=== PATIENT | female | born 1970 | race Caucasian/White ===

== ENCOUNTER 2018-02-01 18:31 | Outpatient (REF) | payer OTHER, SELFPAY ==
[2018-02-01 19:13] LABS: C-Reactive Protein 1.01 mg/dL (0.0-0.3)
[2018-02-01 20:48] LABS: ESR 8 MM/HR (0-20)
[2018-02-04 11:00] LABS: Rheumatoid Factor 9 IU/mL (<12.5)
[2018-02-04 11:34] LABS: Cyclic Citrullinated Peptide <2.5 U/mL (<5.0)
[2018-02-04 13:40] LABS: ANA Interpretation Positive (NEGAT); ANA Titer Pattern 1:80 Speckled
== END 2018-02-01 18:51 ==
LOC: NCHCN 18:31
PROVIDERS: PCP Nurse Practitioner Family; Visit Provider Physician Assistant Medical
DX: K13.0 Diseases of lips (principal); M35.3 Polymyalgia rheumatica
CPT/HCPCS: 85652; 86200; 86038; 86140; 86431

== ENCOUNTER 2018-04-11 18:21 | Outpatient (REF) | payer OTHER, SELFPAY | END 2018-04-11 18:41 | LOC: NCHCN 18:21 | PROVIDERS: PCP Nurse Practitioner Family; Visit Provider Nurse Practitioner Family | DX: N89.8 Other specified noninflammatory disorders of vagina (principal) | CPT/HCPCS: 87480; 87510; 87660 ==

== ENCOUNTER 2018-07-16 08:51 | Outpatient (REF) | payer OTHER, SELFPAY ==
[2018-07-16 22:18] LABS: TSH 1.17 uIU/mL (0.358-3.74)
== END 2018-07-16 09:11 ==
LOC: NCHCN 08:51
PROVIDERS: PCP Nurse Practitioner Family; Visit Provider Nurse Practitioner Family
DX: E03.9 Hypothyroidism, unspecified (principal)
CPT/HCPCS: 84443

== ENCOUNTER 2020-01-29 11:01 | Outpatient (REF) | payer BC, SELFPAY ==
[2020-01-29 19:07] LABS: Anion Gap 8.6 mmol/L (3-11); BUN 14 mg/dL (7-18); CO2 23.4 mmol/L (21.0-32.0); CREATININE 0.74 mg/dL (0.55-1.02); Calcium 9.4 mg/dL (8.5-10.1); Calculated LDL 178 mg/dL (<100); Chloride 99 mmol/L (98-107); Cholesterol 313 mg/dL (<200); Glucose 86 mg/dL (74-106); HDL Cholesterol 68 mg/dL (40-60); Potassium 4.5 mmol/L (3.5-5.1); Sodium 131 mmol/L (136-145); TSH 0.25 uIU/mL (0.36-3.74); Triglyceride 339 mg/dL (<150)
== END 2020-01-29 11:21 ==
LOC: NCHCN 11:01
PROVIDERS: PCP Nurse Practitioner Family; Visit Provider Nurse Practitioner Family
DX: E03.9 Hypothyroidism, unspecified (principal); K21.9 Gastro-esophageal reflux disease without esophagitis; Z00.00 Encounter for general adult medical examination without abnormal findings; Z13.220 Encounter for screening for lipoid disorders
CPT/HCPCS: 80048; 80061; 84443

== ENCOUNTER 2020-02-04 10:44 | Outpatient (REF) | payer BC, SELFPAY ==
--- NOTE | 2020-02-04 10:00 | PAPFT_PTH ---
PATIENT: Mingo Griffith LOC: [facility] U#:[id number] AGE/SX: 49/F ROOM: RE02/04/[address]: Judy Ovalles : 1970 BED: DIS: 02/04/2020 SPEC #: [id number] RECD: 02/04/20 12:58 STATUS: ABHAY REQ #: [id number] DONNY: 02/04/20 10:[address]: Judy Ovalles [facility] Cytology RECD BY: Fany Kelly ENTERED: 02/04/20 12:58 SP TYPE: PAPFT OTHR DR: Alejandra Ravi Tissues: 1 - CX/ENDOCX FOR PAP SMEARS Procedures: PAP THIN PREP/UVM Screening HPV DNA PROBE Comments: [id number]
== END 2020-02-04 11:04 ==
LOC: LBN 10:44
PROVIDERS: PCP Nurse Practitioner Family; Visit Provider Obstetrics & Gynecology Gynecology
DX: Z12.4 Encounter for screening for malignant neoplasm of cervix (principal); Z11.51 Encounter for screening for human papillomavirus (HPV)
CPT/HCPCS: 88142; 87624

== ENCOUNTER 2020-04-08 04:43 | Outpatient (CLI) | payer BC, SELFPAY ==
[2020-04-10 10:01] LABS: COVID-19 RT-PCR Result NEGATIVE (Negative)
== END 2020-04-08 05:03 ==
PROVIDERS: PCP Nurse Practitioner Family; Visit Provider Urology
DX: Z11.59 Encounter for screening for other viral diseases (principal)
CPT/HCPCS: U0003

== ENCOUNTER 2020-04-12 07:09 | Day surgery (SDC) | payer BC, SELFPAY ==
--- NOTE | 2020-04-12 06:59 | HPE_ITS ---
Assessment and Plan Assessment and plan (1) Urethral caruncle: Status: Acute Assessment and plan: For excision of urethral caruncle. I would expect that we will leave a laboy catheter in place temporarily as the incision heals. History of Present Illness History of Present Illness Chief Complaint: Urethral Caruncle Narrative: Mingo 49 year-old female referred to urology by Dr. Ovalles for concerns of a urethral caruncle. Patient notes that she has had it for 10+ years that she can remember. He causes her discomfort with voiding. She notes that she will also have blood on the toilet tissue when wiping. She also has dyspareunia. She notes that the dyspareunia is less than if they use plenty of lube and certain types of positions. She notes no trauma or injury that she can recall or frequent catheterizations. Review of Systems Narrative: No fevers or chills No vision change or dysphasia No diabetes. Hx hypothyroid disease No shortness of breath, cough or hemoptysis No chest pain or palpitations No hepatitis, ulcers, jaundice No seizures, strokes or peripheral neuropathy No bleeding disorders or anemia No gout. Hx fibromyalgia [facility] Medical History Anxiety Colitis Per patient's report not ulcerative and not Crohn's. Treats with diet. Deviated septum Dyspareunia Fibromyalgia History of migraine Hypothyroidism (acquired) Perimenopausal vasomotor symptoms 01/2020 stopped OCPs. 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 Urethral caruncle Surgical History H/O laparoscopy for endometriosis Family History Mother Diabetes Maternal Grandmother Thyroid disease Mother Breast cancer Maternal Grandfather Heart disease Social History Smoking/Tobacco Use Status: Never Smoking risk assessment performed?: Yes Alcohol Intake: current Alcohol Intake frequency: a few times a month Counseling given: No Drug use: Never Substance use type: does not use Household members: spouse and other Details: H-Arian RojasRondaMigdalia Housing: house Number of Children: 1 current occupation: Microcomputer Support Specialist Sexually active: Yes Do you feel safe at home: Yes Do you feel safe in your relationship?: Yes Female Reproductive History Menstrual control method: pills (Long-term use.) History History 1 Para 1 Hx # Term Pregnancies 1 Multiple births Hx # Pregnancies Ectopic pregnancies AB induced Hx Number of Living Children 1 AB spontaneous Meds Home Medications and Allergies Home Medications Medication Instructions Recorded Confirmed Type Flexeril 5 mg PO DAILY PRN 02/14/14 04/09/20 History cholecalciferol (vitamin D3) 5,000 unit PO DAILY 02/14/14 04/12/20 History levothyroxine [Levoxyl] 112 mcg PO DAILY tab-cap 02/14/14 04/12/20 History loratadine 10 mg PO DAILY tab-cap 02/14/14 04/12/20 History duloxetine 60 mg capsule,delayed 60 mg PO DAILY 03/11/20 04/12/20 History release conj estrogen-medroxyprogesterone 1 tab PO DAILY #84 tab 04/07/20 04/09/20 Rx 0.3 mg-1.5 mg tablet montelukast 10 mg PO DAILY 04/09/20 04/12/20 History Allergies Allergy/AdvReac Type Severity Reaction Status Date / Time enviromental Allergy seasonal Uncoded 04/09/20 11:14 Exam Const General: cooperative and comfortable Neck Neck: supple Resp Effort & Inspection: normal respiratory effort Auscultation: clear to auscultation bilaterally Cardio Rate: regular rate Rhythm: regular rhythm GI Palpation: soft and no masses Neuro General: patient alert, patient awake and patient oriented x3 COVID-19 Screening Have you, or household traveled for leisure in last 14 days?: No
[2020-04-12 07:31] VITALS: BP 118/82; PULSE 96; RESP 16; TEMP 36.6; O2SAT 97
[2020-04-12] MEDS: Lactated Ringers 1,000 ML 80 ML IV (08:08)
[2020-04-12] MEDS: ceFAZolin 1 GM/50 ML BAG IVPB (08:50)
[2020-04-12] MEDS: Lidocaine 2% Jelly 6 ML SYR (08:56)
[2020-04-12] MEDS: Lidocaine 1% Multi-Dose 50 ML VIAL (09:01)
--- NOTE | 2020-04-12 09:05 | URETHRABX_PTH ---
PATIENT: Mingo Griffith LOC: [facility] U#:[id number] AGE/SX: 49/F ROOM: RE04/12/[address]: Nabil Arechiga MD : 1970 BED: DIS: 04/12/2020 SPEC #: [id number] RECD: 04/12/20 12:31 STATUS: ABHAY REQ #: [id number] DONNY: 04/12/20 09:[address]: Nabil Arechiga DEPT: Surgical Specimen RECD BY: Fany Kelly ENTERED: 04/12/20 12:33 SP TYPE: URETHRABX OTHR DR: Alejandra Ravi Tissues: 1 - URETHRA BIOPSY Procedures: GROSS AND MICRO LEVEL 4 SPECIAL STAIN 1 Comments: [id number]
--- NOTE | 2020-04-12 09:22 | W.PM.DSUDISC ---
Discharge Plan Disposition Patient Disposition: HOME Condition: Stable Discharge Details Reason For Visit: urethral caruncle Attending Provider: Nabil Arechiga Primary Care Provider: Alejandra Ravi Home Meds and New Rx's Prescriptions: New estradiol [Estrace] 0.01 % (0.1 mg/gram) cream 1 g vaginal DAILY Qty: 42.5 RF: 0 No Action duloxetine [Cymbalta] 60 mg capsule,delayed release(DR/EC) 60 mg PO DAILY RF: 0 loratadine 10 MG tablet,disintegrating 10 mg PO DAILY RF: 0 levothyroxine [Levoxyl] 112 MCG tablet 112 mcg PO DAILY RF: 0 cholecalciferol (vitamin D3) 5,000 UNIT tablet 5,000 unit PO DAILY RF: 0 FLEXERIL 5 MG tablet 5 mg PO DAILY PRNRF: 0 Prempro 0.3-1.5 mg tablet 1 tab PO DAILY Qty: 84 RF: 4 montelukast 10 mg tablet 10 mg PO DAILY RF: 0 Discharge Instructions Additional Instructions: may D/C laboy prior to discharge New script for Estradiol vaginal cream - apply daily for 14 days (helps promote healing of vaginal tissue) Follow up 2 to 4 weeks for pelvic exam Activity:: Activity as Tolerated Shower/Bathe:: 24 hours Discharge Orders Discharge Orders: Discharge Order (Routine); Ordered 04/12/20 Ordered By: Nabil Arechiga Discharge Data Discharge Comment: pt must void prior to discharge DS: Diagnosis Discharge Diagnosis (1) Urethral caruncle: Status: Acute
--- NOTE | 2020-04-12 09:45 | ROE_ITS ---
Date of service: 04/12/20 Time of Service: 09:45 Operative Note Operative Note DATE OF PROCEDURE: 04/12/20 PRE-OP DIAGNOSIS: Urethral caruncle POST-OP DIAGNOSIS: same PROCEDURE: Excision of urethral caruncle SURGEON: Nabil Arechiga ANESTHESIA: other (General without intubation) ESTIMATED BLOOD LOSS: 25 PATHOLOGY: other (Urethral caruncle) COMPLICATIONS: None Patient was transported to: same day Indications: This is a 49-year-old woman who has a symptomatic urethral caruncle. She has discomfort when she voids as well as spotting of blood. She presents for excision of the caruncle Findings: Urethral caruncle Procedure Description: The patient was brought to the operating room on 04/12/2020. She was given a dose of preoperative IV antibiotics. After successful induction of general anesthesia without intubation, she was placed in the dorsal lithotomy position. Genitalia was prepped and draped. The labia were retracted laterally to expose the urethral meatus. A small carbuncle was seen on the underside of the urethral meatus. A 16 Arabic Domínguez was passed through the urethra into the bladder. The catheter balloon was inflated with 10 cc of sterile water and the catheter was hooked to gravity drainage. A field block using 1% lidocaine was performed around the caruncle. The carun mark was then excised and sent to pathology for permanent section. The edge of the urethral mucosa was reanastomosed to the cut edge of the vaginal mucosa using simple interrupted 4-0 chromic sutures. The patient tolerated this procedure well with no complications. The urethral catheter will be removed in the outpatient area once the patient is awake.
[2020-04-12 10:21] VITALS: BP 102/64; PULSE 77; RESP 16; TEMP 36.3; O2SAT 100
== END 2020-04-12 10:55 | disposition home or self-care (01) ==
PROVIDERS: PCP Nurse Practitioner Family; Visit Provider Urology
PROC: 0TJB8ZZ Inspection of Bladder, Via Natural or Artificial Opening Endoscopic (ICD-10-PCS; CPT 52000; principal; 2020-04-12 08:15)
DX: N36.2 Urethral caruncle (principal)
CPT/HCPCS: 53265; 88305; NC; 88312; J0690; J1100; J1885; J2001; J2250; J2405

== ENCOUNTER 2020-08-17 23:28 | Outpatient (REF) | payer BC, SELFPAY ==
[2020-08-17 15:53] LABS: FREE T4 0.95 ng/dL (0.76-1.46); TSH 2.76 uIU/mL (0.36-3.74)
== END 2020-08-17 23:29 | disposition home or self-care (01) ==
LOC: NCHCN 23:28
PROVIDERS: PCP Nurse Practitioner Family; Visit Provider Nurse Practitioner Family
DX: E03.9 Hypothyroidism, unspecified (principal)
CPT/HCPCS: 84439; 84443

== ENCOUNTER 2021-02-24 02:01 | Outpatient (CLI) | payer BC, SELFPAY ==
[2021-02-24 14:26] LABS: TSH (W/Ref FT4) 1.27 uIU/mL (0.36-3.74)
[2021-02-24 22:04] LABS: Estradiol 30 pg/mL (See Note)
[2021-02-24 22:40] LABS: FSH 70.8 mIU/mL (See Note)
== END 2021-02-24 02:02 | disposition home or self-care (01) ==
LOC: LBO 02:01
PROVIDERS: PCP Nurse Practitioner Family; Visit Provider Obstetrics & Gynecology
DX: N95.1 Menopausal and female climacteric states (principal); R10.2 Pelvic and perineal pain
CPT/HCPCS: 36415; 82670; 83001; 84443

== ENCOUNTER 2021-02-28 09:33 | Outpatient (REF) | payer BC, SELFPAY ==
--- NOTE | 2021-02-28 09:00 | ENDOMET_PTH ---
PATIENT: Mingo Griffith LOC: [facility] U#:[id number] AGE/SX: 50/F ROOM: RE02/28/[address]: Meagan Hopkins DO : 1970 BED: DIS: 02/28/2021 SPEC #: [id number] RECD: 02/28/21 12:35 STATUS: ABHAY REQ #: [id number] DONNY: 02/28/21 09:[address]: Meagan Hopkins DEPT: Surgical Specimen RECD BY: Fany Kelly ENTERED: 02/28/21 12:35 SP TYPE: Endomet OTHR DR: Alejandra Ravi Tissues: 1 - ENDOMETRIUM BX/TARYNETTE Procedures: GROSS AND MICRO LEVEL 4 Comments: [id number]
--- NOTE | 2021-02-28 09:15 | PAPFT_PTH ---
PATIENT: Mingo Griffith LOC: [facility] U#:[id number] AGE/SX: 50/F ROOM: RE02/28/[address]: Meagan Hopkins DO : 1970 BED: DIS: 02/28/2021 SPEC #: [id number] RECD: 02/28/21 12:49 STATUS: ABHAY REQ #: [id number] DONNY: 02/28/21 09:[address]: Meagan Hopkins DEPT: [facility] Cytology RECD BY: Fany Kelly ENTERED: 02/28/21 12:49 SP TYPE: PAPFT OTHR DR: Alejandra Ravi Tissues: 1 - CX/ENDOCX FOR PAP SMEARS Procedures: PAP THIN PREP/UVM Screening HPV DNA PROBE Comments: [id number]
== END 2021-02-28 09:34 | disposition home or self-care (01) ==
LOC: LBN 09:33
PROVIDERS: PCP Nurse Practitioner Family; Visit Provider Obstetrics & Gynecology
DX: Z12.4 Encounter for screening for malignant neoplasm of cervix (principal); Z11.51 Encounter for screening for human papillomavirus (HPV); N95.0 Postmenopausal bleeding
CPT/HCPCS: 88142; 88305; 87624

== ENCOUNTER 2021-06-17 08:23 | Outpatient (REF) | payer SELFPAY ==
[2021-06-17 15:35] LABS: Anion Gap 12.9 mmol/L (3-11); BUN 18 mg/dL (7-18); CO2 21.1 mmol/L (21.0-32.0); CREATININE 0.7 mg/dL (0.55-1.02); Calcium 9.5 mg/dL (8.5-10.1); Chloride 101 mmol/L (98-107); Glucose 86 mg/dL (74-106); Potassium 4.4 mmol/L (3.5-5.1); Sodium 135 mmol/L (136-145)
== END 2021-06-17 08:24 | disposition home or self-care (01) ==
LOC: NCHCN 08:23
PROVIDERS: PCP Nurse Practitioner Family; Visit Provider Nurse Practitioner Family
DX: Z72.0 Tobacco use (principal)
CPT/HCPCS: 80048

== ENCOUNTER 2021-08-11 15:13 | Outpatient (REF) | payer OTHER, SELFPAY | END 2021-08-11 15:14 | disposition home or self-care (01) | LOC: NCHCN 15:13 | PROVIDERS: PCP Nurse Practitioner Family; Visit Provider Nurse Practitioner Family | DX: R10.30 Lower abdominal pain, unspecified (principal) | CPT/HCPCS: 87086 ==

== ENCOUNTER 2022-07-24 12:01 | Outpatient (REF) | payer OTHER, SELFPAY ==
[2022-07-24 16:42] LABS: TSH 1.61 uIU/mL (0.36-3.74)
== END 2022-07-24 12:02 | disposition home or self-care (01) ==
LOC: NCHCN 12:01
PROVIDERS: PCP Nurse Practitioner Family; Visit Provider Nurse Practitioner Family
DX: E03.9 Hypothyroidism, unspecified (principal)
CPT/HCPCS: 84443

== ENCOUNTER 2022-12-07 18:41 | Outpatient (REF) | payer OTHER, SELFPAY ==
[2022-12-07 17:05] LABS: TSH 4.57 uIU/mL (0.36-3.74)
== END 2022-12-07 18:42 | disposition home or self-care (01) ==
LOC: NCHCN 18:41
PROVIDERS: PCP Nurse Practitioner Family; Visit Provider Nurse Practitioner Family
DX: E03.9 Hypothyroidism, unspecified (principal)
CPT/HCPCS: 84443

== ENCOUNTER 2023-02-07 10:43 | Outpatient (REF) | payer OTHER, SELFPAY ==
[2023-02-07 15:58] LABS: TSH 0.37 uIU/mL (0.36-3.74)
== END 2023-02-07 10:44 | disposition home or self-care (01) ==
LOC: NCHCN 10:43
PROVIDERS: PCP Nurse Practitioner Family; Visit Provider Nurse Practitioner Family
DX: E03.9 Hypothyroidism, unspecified (principal)
CPT/HCPCS: 84443

== ENCOUNTER 2023-04-13 15:59 | Outpatient (REF) | payer OTHER, SELFPAY ==
[2023-04-13 16:09] LABS: FREE T4 1.28 ng/dL (0.76-1.46); TSH 1.21 uIU/mL (0.36-3.74)
== END 2023-04-13 16:00 | disposition home or self-care (01) ==
LOC: NCHCN 15:59
PROVIDERS: PCP Nurse Practitioner Family; Visit Provider Nurse Practitioner Family
DX: E03.9 Hypothyroidism, unspecified (principal)
CPT/HCPCS: 84439; 84443

== ENCOUNTER 2023-05-09 13:59 | Outpatient (REF) | payer OTHER, SELFPAY | END 2023-05-09 14:00 | disposition home or self-care (01) | LOC: LBN 13:59 | PROVIDERS: PCP Nurse Practitioner Family; Visit Provider Nurse Practitioner Gerontology | DX: N93.8 Other specified abnormal uterine and vaginal bleeding (principal); N89.8 Other specified noninflammatory disorders of vagina; R10.2 Pelvic and perineal pain | CPT/HCPCS: 87480; 87510; 87660 ==

== ENCOUNTER → 2023-09-18 03:04 | Outpatient (CLI) | payer OTHER, SELFPAY ==
--- NOTE | 2023-09-18 | DI.MAMMO_ITS ---
Exam(s) MAMMO SCREENING EXAM: MAMMO SCREENING CLINICAL HISTORY: Z12.31 Screening TECHNIQUE: Mammograms were interpreted according to the usual protocol including computer analysis w [employer] CAD system, tomosynthesis and C-view imaging. COMPARISON: None. Baseline examination. FINDINGS: The breasts are composed of heterogeneously dense fibroglandular densities, Breast Density category C . No suspicious masses or suspicious microcalcifications are seen. No skin thickening or abnormal axillary lymph nodes are seen. IMPRESSION: BI-RADS Category 1, Negative mammogram. Yearly screening mammography is recommended. Breast Density Category C, heterogeneously Dense. The mammogram demonstrates the patient's breast tissue is dense. Dense breast tissue is very common a nd is not abnormal but dense breast tissue can make it harder to find cancer on a mammogram. Also, de nse breast tissue may increase breast cancer risk. This information about the result of the mammogram report was provided to the patient to raise their awareness. Use this report when you speak with the patient about their risks for breast cancer, which includes their family history. At that time, you may recommend additional screening tests (Ultrasound or MRI) as they might be useful based on their r isk. A negative radiographic report should not delay biopsy if a dominant or clinically suspicious mass is present. Up to ten percent of cancers are not identified on mammography. A negative report may reinforce clinical impression. Adenosis and dense breasts may obscure an underlying neoplasm. False positive reports average 6 to 10%.
== END ==
PROVIDERS: PCP Nurse Practitioner Family; Visit Provider Nurse Practitioner Family
DX: Z12.31 Encounter for screening mammogram for malignant neoplasm of breast (principal); R92.333 Mammographic heterogeneous density, bilateral breasts
CPT/HCPCS: 77063; 77067

== ENCOUNTER 2024-06-06 13:55 | Outpatient (REF) | payer OTHER, SELFPAY ==
[2024-06-06 16:58] LABS: ALT 25 U/L (14-59); AST 27 U/L (15-37); Albumin 4.4 g/dL (3.4-5.0); Alkaline Phosphatase 121 U/L (46-116); Anion Gap 9.2 mmol/L (3-11); BUN 16 mg/dL (7-18); Bilirubin, Total 0.57 mg/dL (0.2-1.0); CO2 27.8 mmol/L (21.0-32.0); CREATININE 0.9 mg/dL (0.55-1.02); Calcium 10.4 mg/dL (8.5-10.1); Calculated LDL 247 mg/dL (<100); Chloride 100 mmol/L (98-107); Cholesterol 378 mg/dL (<200); Estimated GFR 75.97 (mL/min/1.73m2); Glucose 94 mg/dL (74-106); HDL Cholesterol 91 mg/dL (40-60); Potassium 5.2 mmol/L (3.5-5.1); Sodium 137 mmol/L (136-145); Total Protein 7.8 g/dL (6.4-8.2); Triglyceride 204 mg/dL (<150); Vitamin D 25 Total 92.2 ng/mL (30-100)
[2024-06-06 17:08] LABS: Hemoglobin A1C 5.7 % (<5.7)
== END 2024-06-06 13:56 | disposition home or self-care (01) ==
LOC: NCHCN 13:55
PROVIDERS: PCP Nurse Practitioner Family; Visit Provider Nurse Practitioner Family
DX: E03.9 Hypothyroidism, unspecified (principal); E78.5 Hyperlipidemia, unspecified; M79.7 Fibromyalgia
CPT/HCPCS: 80053; 80061; 82306; 83036; 84443

== ENCOUNTER 2024-07-18 09:22 | Outpatient (REF) | payer OTHER, SELFPAY ==
[2024-07-18 15:55] LABS: Anion Gap 6.2 mmol/L (3-11); BUN 12 mg/dL (7-18); CO2 30.8 mmol/L (21.0-32.0); CREATININE 0.7 mg/dL (0.55-1.02); Calcium 9.3 mg/dL (8.5-10.1); Calculated LDL 126 mg/dL (<100); Chloride 104 mmol/L (98-107); Cholesterol 230 mg/dL (<200); Estimated GFR 102.71 (mL/min/1.73m2); Glucose 84 mg/dL (74-106); HDL Cholesterol 68 mg/dL (>or=50); Potassium 3.8 mmol/L (3.5-5.1); Sodium 141 mmol/L (136-145); TSH 2.02 uIU/mL (0.36-3.74); Triglyceride 180 mg/dL (<150)
[2024-07-18 22:02] LABS: T4, Free 1.3 ng/dL (0.8-2.2)
== END 2024-07-18 09:23 | disposition home or self-care (01) ==
LOC: NCHCN 09:22
PROVIDERS: PCP Nurse Practitioner Family; Visit Provider Nurse Practitioner Family
DX: E03.9 Hypothyroidism, unspecified (principal); E78.5 Hyperlipidemia, unspecified; M79.7 Fibromyalgia
CPT/HCPCS: 80048; 80061; 84439; 84443

== ENCOUNTER → 2025-03-23 02:12 | Outpatient (CLI) | payer OTHER, SELFPAY ==
--- NOTE | 2025-03-23 10:30 | DI.MAMMO_ITS ---
Exam(s) MAMMO SCREENING EXAM: MAMMO SCREENING CLINICAL HISTORY: SCREENING,Z12.31 TECHNIQUE: Bilateral full field digital CC and MLO mammographic images were obtained with 3D tomosynthesis and utilizing computer aided detection (CAD). COMPARISON: Comparison is made with prior examinations. FINDINGS: Masses/Architectural Distortion: No suspicious masses or areas of architectural distortion are present. Microcalcifications: No suspicious pleomorphic-type are seen. Skin Thickening/Nipple Retraction: None. IMPRESSION: 1. No significant interval change with no specific features of malignancy noted. 2. Unless there is more urgent need, screening mammography is recommended, as per [employer] [employer] guidelines. BI-RADS Category 1 - Negative Breast Density - Category C - The breast are heterogeneously dense, which may obscure small masses. Breast density Category C or D implies that the patient has dense breast tissue. Dense breast tissue can make it harder to find cancer on a mammogram. Dense breast tissue is also associated with an increased risk of breast cancer. This information about the result of the mammogram report was provided to the patient to raise their awareness. Use this report when you speak with the patient about their risks for breast cancer, which includes their family history. At that time, you may recommend additional screening tests (Ultrasound or MRI) as these tests may add significant information. A negative radiographic report should not delay biopsy if a dominant or clinically suspicious mass is present. Up to ten percent of cancers are not identified on mammography. A negative report may reinforce clinical impression. Adenosis and dense breasts may obscure an underlying neoplasm. False positive reports average 6 to 10%. Patient will receive a letter notifying them of these results.
== END ==
PROVIDERS: PCP Nurse Practitioner Family; Visit Provider Nurse Practitioner Family
DX: Z12.31 Encounter for screening mammogram for malignant neoplasm of breast (principal)
CPT/HCPCS: 77063; 77067

== ENCOUNTER 2025-04-03 02:36 | Outpatient (CLI) | payer OTHER, SELFPAY ==
[2025-04-03] MEDS: Methacholine 100 MG VIAL IH (14:55)
[2025-04-03] MEDS: Albuterol HFA 18 GM 200 PUFF INH IH (14:55)
[2025-04-03] MEDS: Inhaler, Assist Device 1 EACH MC (14:55)
--- NOTE | 2025-04-07 08:02 | W.PFT ---
Date of service: 04/03/25 Time of Service: 12:58 Pulmonary Function Test Result Indications: Dyspnea with exertion Impression 1. Good patient effort was noted. ATS standards for reproducibility were met. 2. Spirometry showed mild obstructive lung disease with an FEV1 of 91% (2.3 L) 3. TLC and RV were elevated, consistent with air trapping 4. DLCO was normal at 110% 5. At 4.0 mg/mL methacholine, there was a 24% fall in FEV1 Conclusion: - mild obstructive lung disease with air trapping and a normal DLCO - positive methacholine challenge test
== END 2025-04-03 02:37 | disposition home or self-care (01) ==
LOC: RT 02:36
PROVIDERS: PCP Nurse Practitioner Family; Visit Provider Nurse Practitioner Family
DX: R06.09 Other forms of dyspnea (principal); J44.9 Chronic obstructive pulmonary disease, unspecified
CPT/HCPCS: 94070; 94726; 94729; 95070; J7674